=== PATIENT | male | born 1965 | race Caucasian/White ===

== ENCOUNTER 2023-02-09 09:57 | Outpatient (CLI) | payer BC | END 2023-02-09 09:58 | disposition home or self-care (01) | LOC: CSHCT 09:57 | PROVIDERS: ATTEND Family Medicine | DX: Z12.2 Encounter for screening for malignant neoplasm of respiratory organs (principal); F17.210 Nicotine dependence, cigarettes, uncomplicated; J43.2 Centrilobular emphysema; R91.1 Solitary pulmonary nodule | CPT/HCPCS: 71271 ==